=== PATIENT | male | born 1985 | race Hispanic/Latino ===

== ENCOUNTER 2016-07-15 11:51 | Observation (INO) | payer MEDICAID, OTHER ==
[2016-07-15 11:55] VITALS: TEMP 98.5
--- NOTE | 2016-07-15 12:38 | C.PDOC ---
History Of Present Illness 30 yr old male presents to the ER for reoccurring headache for the past 3 days. Patient states the initial sudden onset to the right posterior scalp pain while weightlifting 2 months ago. States initially he felt dazed but the headache spontaneously resolved and the pain is reoccurring to the same location for the past 3 days. States the current headache is not associated with valsalva event. States "not as bad as last time but getting more frequent and worse". Denies recent trauma, injury, fever, photophobia, nausea, vomiting, neck pain, weakness or numbness. Patient also reports of intermittent chest pain for the past 2 month. Reports the pain is left chest and sharp, not made worse with movement or activity. Patient states he is doing a lot of athletic training. RECUR HEADACHE X 3 DAYS. PS INITIAL SUDDEN ONSET R POST SCALP PAIN WHILE WEIGHTLIFTING 2 MO AGO. NO TRAUMA. PS INITIALLY FELT DAZED BUT BARBER SPONTANEOUSLY RESOLVED. NOW SPONT RECUR SAME LOCATION X 3 DAYS. CURRENT BARBER NO ASSOC W VALSALVA EVENT, NO TRAUMA, INTERMIT. "NOT BAD LAST TIME BUT GETTING MORE FREQ AND WORSE". NO FEVER, NV, PHOTOPHOBIA, NECK PAIN, OTHER ASSOC SX. ALSO W INTERMIT CHEST PAIN X 2 MONTH. L CHEST, SHARP, NO ASSOC W MOVEMENT OR ACTIVITY. PS DOING ALOT OF ATHLETIC TRAINING. EXAM MILD DIST NONTOXIC HEENT NO PHOTOPHOBIA NECK SUPPLE NEURO INTACT CHEST WALL MIN TEND L LOWER LAT STERNUM NO SWELL LUNGS CTA B/L NO W/R/R CV RRR NEURO INTACT SKIN NEG MDM BARBER CONCERN FOR SENTINEL BARBER, LEAKING SAH. CT, POSSIBLE MRA. CHEST PAIN: NO S/S ACUTE ACS, PROBABLE CHEST WALL STRAIN. EKG. CXR norm Time Seen by Provider: 07/15/16 12:12 Chief Complaint (Nursing): Headache History Per: Patient History/Exam Limitations: no limitations Onset/Duration Of Symptoms: Days (3) Current Symptoms Are (Timing): Still Present Past Medical History Reviewed: Historical Data, Nursing Documentation, Vital Signs Vital Signs: Last Vital Signs Temp 98.5 F 07/15/16 11:53 Pulse 86 07/15/16 11:53 Resp 14 07/15/16 11:53 BP 127/66 07/15/16 11:53 Pulse Ox 100 07/15/16 16:17 Family History: States: No Known Family Hx - Social History Hx Alcohol Use: No Hx Substance Use: No - Immunization History Hx Tetanus Toxoid Vaccination: No Hx Influenza Vaccination: No Hx Pneumococcal Vaccination: No Review Of Systems Except As Marked, All Systems Reviewed And Found Negative. Constitutional: Negative for: Fever Eyes: Negative for: Vision Change Cardiovascular: Positive for: Chest Pain (Left sided sharp chest pain ) Gastrointestinal: Negative for: Nausea, Vomiting Musculoskeletal: Negative for: Neck Pain Neurological: Negative for: Weakness, Numbness Physical Exam - Physical Exam Appears: Non-toxic, In Acute Distress (Mild ) Skin: Warm, Dry, No Rash Head: Atraumatic, Normacephalic Eye(s): bilateral: Normal Inspection, PERRL, EOMI Neck: Normal, Normal ROM, Supple Chest: Symmetrical, Tenderness (Chest wall, minimal tenderness left lower lateral sternum. No swelling. ) Cardiovascular: Rhythm Regular, No Murmur Respiratory: Normal Breath Sounds, No Rales, No Rhonchi, No Stridor, No Wheezing Extremity: Normal ROM, No Swelling Neurological/Psych: Oriented x3, Normal Speech, Normal Motor ED Course And Treatment - Laboratory Results Result Diagrams: 07/15/16 12:56 07/15/16 12:56 ECG: Interpreted By Ms, Viewed By Ms ECG Rhythm: Sinus Rhythm ECG Interpretation: Normal Rate From EC (BPM) O2 Sat by Pulse Oximetry: 100 (RA) - Radiology CXR: Interpreted by Ms, Viewed By Ms CXR Interpretation: No: No Acute Disease - CT Scan/US CT - Head Other Rad Studies (CT/US): Read By Radiologist, Radiology Report Reviewed CT/US Interpretation: PROCEDURE: CT HEAD WITHOUT CONTRAST. HISTORY: headache R/O Bleed. COMPARISON: None available. TECHNIQUE: Axial computed tomography images were obtained through the head/brain without intravenous contrast. Radiation dose: Total exam DLP = 828.38 mGy-cm. This CT exam was performed using one or more of the following dose reduction techniques: Automated exposure control, adjustment of the mA and/or kV according to patient size, and/ or use of iterative reconstruction technique. FINDINGS: HEMORRHAGE: No intracranial hemorrhage. BRAIN: No mass effect or edema. No atrophy or chronic microvascular ischemic changes. VENTRICLES: Unremarkable. No hydrocephalus. CALVARIUM: Unremarkable. PARANASAL SINUSES: Unremarkable as visualized. No significant inflammatory changes. MASTOID AIR CELLS: Unremarkable as visualized. No inflammatory changes. OTHER FINDINGS: None. IMPRESSION: No intracranial mass, hemorrhage or evidence of acute infarct. Unremarkable examination. MRI - Head Other Rad Studies (CT/US): Read By Radiologist, Radiology Report Reviewed CT/US Interpretation: PROCEDURE: Magnetic Resonance Angiography Brain. HISTORY : HEADACHE R/O SAH. COMPARISON: None available. TECHNIQUE: 3D time of flight MR angiography of the intracranial arteries was performed. Rotating maximum intensity projection images were generated. FINDINGS: INTERNAL CEREBRAL ARTERIES: Unremarkable. The skull base, petrous, cavernous and supraclinoid segments are bilaterally widely patient. ANTERIOR CEREBRAL ARTERIES: Unremarkable. A1 and A2 segments are widely patent. Smaller distal branches unremarkable, as visualized. MIDDLE CEREBRAL ARTERIES: Unremarkable. M1 and M2 segments are widely patent. Perisylvian branches grossly symmetric. POSTERIOR CIRCULATION: Basilar Artery: Unremarkable. Distal Vertebral Arteries : Unremarkable. Posterior Cerebral Arteries: Unremarkable. Posterior Inferior Cerebellar Arteries: Unremarkable. ANEURYSM/ VASCULAR MALFORMATIONS: None. OTHER FINDINGS: None. IMPRESSION: Unremarkable MR angiography of the brain. Progress - Data Reviewed Data Reviewed: Lab, Diagnostic imaging, EKG, Old records - Critical Care Citical Care: Excluding Proc Time Critical Care Time: 120 minutes Medical Decision Making Medical Decision Making: PLAN: * MRI - Head * CT - Head * CXR * EKG * CBC * Admit to hospital NOTE: * Headache is concern for sentinel headache and leaking SAH. CT, possible MRA. * Chest Pain: No S/S acute ACS, probable chest wall strain. EKG. ED OBSERVATION Discharge: Yes Date of observation admission: 07/15/16 Time of observation admission: 12:15 - Observation admission statement Patient is being placed in observation because:: headache - Goals of Observation Goals of observation are:: ro sah, neuro intact - Progress Note Progress Note: 07/15/16 13:[address] HEAD NEG. VSS. LABS PENDING. WILL MRA 07/15/16 16:26 neg mra. neuro intact unch prior. vss. advised fu pmd/neurology Disposition Counseled Patient/Family Regarding: Studies Performed, Diagnosis, Need For Followup - Disposition Disposition: HOME/ ROUTINE Disposition Time: 16:26 Condition: IMPROVED - Clinical Impression Clinical Impression: Headache - Scribe Statement The provider has reviewed the documentation as recorded by the Zuleika Perez Provider Attestation: All medical record entries made by the Scribe were at my direction and personally dictated by me. I have reviewed the chart and agree that the record accurately reflects my personal performance of the history, physical exam, medical decision making, and the department course for this patient. I have also personally directed, reviewed, and agree with the discharge instructions and disposition.
[2016-07-15 13:15] LABS: BASO % 0.4 % (0.0-2.0); EOS # 0.1 K/uL (0.0-0.7); EOS % 2.3 % (0.0-4.0); HEMATOCRIT 44.8 % (35.0-51.0); LYMPH # 2.3 K/uL (1.0-4.3); MEAN CELL VOLUME 91.3 fL (80.0-94.0); MEAN CORPUSCULAR HEMOGLOBIN 30.8 pg (27.0-31.0); MEAN CORPUSCULAR HGB CONC 33.7 g/dL (33.0-37.0); MEAN PLATELET VOLUME 9.3 fL (7.2-11.7); MONO # 0.4 K/uL (0.0-0.8); MONO % 7.2 % (0.0-10.0); NRBC % 0.1 % (0.0-2.0); RED CELL DISTRIBUTION WIDTH 12.9 % (11.5-14.5); WHITE BLOOD COUNT 5.7 K/uL (4.8-10.8)
--- NOTE | 2016-07-15 13:15 | RAD ---
HISTORY: CHEST PAIN COMPARISON: No prior. TECHNIQUE: Chest PA and lateral FINDINGS: LUNGS: No active pulmonary disease. PLEURA: No significant pleural effusion identified. No pneumothorax apparent. CARDIOVASCULAR: Normal. OSSEOUS STRUCTURES: No significant abnormalities. VISUALIZED UPPER ABDOMEN: Normal. OTHER FINDINGS: None. IMPRESSION: No active disease. Concordant results with the preliminary interpretation rendered by the emergency department physician procedure.
--- NOTE | 2016-07-15 13:18 | CT ---
PROCEDURE: CT HEAD WITHOUT CONTRAST. HISTORY: headache R/O Bleed COMPARISON: None available. TECHNIQUE: Axial computed tomography images were obtained through the head/brain without intravenous contrast. Radiation dose: Total exam DLP = 828.38 mGy-cm. This CT exam was performed using one or more of the following dose reduction techniques: Automated exposure control, adjustment of the mA and/or kV according to patient size, and/or use of iterative reconstruction technique. FINDINGS: HEMORRHAGE: No intracranial hemorrhage. BRAIN: No mass effect or edema. No atrophy or chronic microvascular ischemic changes. VENTRICLES: Unremarkable. No hydrocephalus. CALVARIUM: Unremarkable. PARANASAL SINUSES: Unremarkable as visualized. No significant inflammatory changes. MASTOID AIR CELLS: Unremarkable as visualized. No inflammatory changes. OTHER FINDINGS: None. IMPRESSION: No intracranial mass, hemorrhage or evidence of acute infarct. Unremarkable examination.
[2016-07-15 13:22] LABS: CHLORIDE 103 mmol/L (98-107)
[2016-07-15 13:23] LABS: POTASSIUM 4.1 mmol/L (3.6-5.2); SODIUM 137 mmol/L (132-148)
[2016-07-15 13:25] LABS: GFR AFRICAN-AMERICAN > 60
[2016-07-15 13:26] LABS: BLOOD UREA NITROGEN 15 mg/dL (9-20); CALCIUM 8.4 mg/dl (8.6-10.4); CARBON DIOXIDE 25 mmol/L (22-30); GLUCOSE,RANDOM 89 mg/dL (75-110)
--- NOTE | 2016-07-15 16:13 | MRI ---
PROCEDURE: Magnetic Resonance Angiography Brain HISTORY: HEADACHE R/O SAH COMPARISON: None available. TECHNIQUE: 3D time of flight MR angiography of the intracranial arteries was performed. Rotating maximum intensity projection images were generated. FINDINGS: INTERNAL CEREBRAL ARTERIES: Unremarkable. The skull base, petrous, cavernous and supraclinoid segments are bilaterally widely patient. ANTERIOR CEREBRAL ARTERIES: Unremarkable. A1 and A2 segments are widely patent. Smaller distal branches unremarkable, as visualized. MIDDLE CEREBRAL ARTERIES: Unremarkable. M1 and M2 segments are widely patent. Perisylvian branches grossly symmetric. POSTERIOR CIRCULATION: Basilar Artery: Unremarkable. Distal Vertebral Arteries: Unremarkable. Posterior Cerebral Arteries: Unremarkable. Posterior Inferior Cerebellar Arteries: Unremarkable. ANEURYSM/ VASCULAR MALFORMATIONS: None. OTHER FINDINGS: None. IMPRESSION: Unremarkable MR angiography of the brain.
[2016-07-15 16:38] VITALS: BP 123/67; PULSE 66; RESP 16; O2SAT 98
--- NOTE | 2016-07-19 12:50 | CARD ---
APPROVED REPORT EKG Measurement Heart [id number] <Conclusion> Normal sinus rhythm Normal ECG
== END 2016-07-15 16:39 | disposition home or self-care (01) ==
LOC: C.ER 11:51 → SUPCPDRO 11:51 → C.9OBSV 12:15
PROVIDERS: ADMIT Emergency Medicine; ATTEND Emergency Medicine
DX: R51 Headache (principal); R07.9 Chest pain, unspecified
CPT/HCPCS: 36415; 70450; 70544; 71020; 80048; 85025; 93005; 99285; G0378